=== PATIENT | female | born 1995 | race Caucasian/White ===

== ENCOUNTER → 2020-05-22 13:12 | Outpatient (BNVA) | payer OTHER, SELFPAY | PROVIDERS: Family Provider Family Medicine; PCP Family Medicine; Visit Provider Nurse Practitioner Family | DX: Z20.828 Contact with and (suspected) exposure to other viral communicable diseases (principal); J06.9 Acute upper respiratory infection, unspecified | CPT/HCPCS: 87635 ==

== ENCOUNTER → 2022-01-29 15:46 | Outpatient (BNVA) | payer MEDICAID, SELFPAY | PROVIDERS: Family Provider Family Medicine; PCP Family Medicine; Visit Provider Family Medicine | DX: Z34.80 Encounter for supervision of other normal pregnancy, unspecified trimester (principal) | CPT/HCPCS: 80307; 81000; 81025; 84443; 85025; 86592; 86762; 87086; 87491; 87591; 88175 ==

== ENCOUNTER → 2022-03-06 11:33 | Outpatient (BNVA) | payer MEDICAID, OTHER, SELFPAY | PROVIDERS: Family Provider Family Medicine; PCP Family Medicine; Visit Provider Family Medicine | DX: Z34.80 Encounter for supervision of other normal pregnancy, unspecified trimester (principal); Z11.59 Encounter for screening for other viral diseases | CPT/HCPCS: 86803; 86850; 86900; 87340; 87806 ==

== ENCOUNTER 2022-03-12 06:46 | Outpatient (CLI) | payer MEDICAID, SELFPAY ==
--- NOTE | 2022-03-12 07:15 | US_ITS ---
WS: [id number] LIMITED OBSTETRICAL ULTRASOUND HISTORY: Dates. COMPARISON: None available. Presentation: Breech. Cervix: Closed, 3.5 cm in length. Placenta: Placenta is posterior and extends to the cervical os. Low-lying placenta partially covers t he internal os. Grade: 0 HEART: FHR of 133 BPM. measurements: BPD = 3.3 cm = 16w2d HC = 12.5 cm = 16w2d AC = 9.9 cm = 15w6d FL = 2.0 cm = 16w0d EFW: 142 g AGA by ultrasound: 16w1d RYLEE by ultrasound: 08/26/2022 US/US OB <= 14 weeks fetus [id number] IMPRESSION: 1. Single intrauterine gestation of 16 weeks 1 day with an EDC of 08/26/2022. 2. Normal cardiac activity. 3. Low-lying placenta.
== END 2022-03-12 06:47 | disposition home or self-care (01) ==
LOC: RAD 06:46
PROVIDERS: Family Provider Family Medicine; PCP Family Medicine; Visit Provider Family Medicine
DX: Z34.92 Encounter for supervision of normal pregnancy, unspecified, second trimester (principal); O44.42 Low lying placenta NOS or without hemorrhage, second trimester; Z3A.14 14 weeks gestation of pregnancy
CPT/HCPCS: 76801

== ENCOUNTER → 2022-03-28 11:16 | Outpatient (BNVA) | payer OTHER, MEDICAID, SELFPAY | PROVIDERS: Family Provider Family Medicine; PCP Family Medicine; Visit Provider Family Medicine | DX: Z34.82 Encounter for supervision of other normal pregnancy, second trimester (principal); Z3A.18 18 weeks gestation of pregnancy | CPT/HCPCS: 76805 ==

== ENCOUNTER → 2022-05-27 13:12 | Outpatient (BNVA) | payer MEDICAID, SELFPAY | PROVIDERS: Family Provider Family Medicine; PCP Family Medicine; Visit Provider Family Medicine | DX: O44.42 Low lying placenta NOS or without hemorrhage, second trimester (principal); Z3A.00 Weeks of gestation of pregnancy not specified | CPT/HCPCS: 76815 ==

== ENCOUNTER → 2022-06-03 12:12 | Outpatient (BNVA) | payer MEDICAID, SELFPAY | PROVIDERS: Family Provider Family Medicine; PCP Family Medicine; Visit Provider Family Medicine | DX: O99.810 Abnormal glucose complicating pregnancy (principal); O99.891 Other specified diseases and conditions complicating pregnancy; R30.0 Dysuria; Z3A.00 Weeks of gestation of pregnancy not specified | CPT/HCPCS: 82950; 87086 ==

== ENCOUNTER → 2022-06-10 08:07 | Outpatient (BNVA) | payer MEDICAID, SELFPAY | PROVIDERS: Family Provider Family Medicine; PCP Family Medicine; Visit Provider Family Medicine | DX: O99.810 Abnormal glucose complicating pregnancy (principal); Z3A.00 Weeks of gestation of pregnancy not specified | CPT/HCPCS: 82951; 82952 ==

== ENCOUNTER → 2022-07-10 13:13 | Outpatient (BNVA) | payer MEDICAID, SELFPAY | PROVIDERS: Family Provider Family Medicine; PCP Family Medicine; Visit Provider Family Medicine | DX: Z51.81 Encounter for therapeutic drug level monitoring (principal) | CPT/HCPCS: 85025 ==

== ENCOUNTER 2022-07-29 08:19 | Outpatient (CLI) | payer MEDICAID, SELFPAY ==
--- NOTE | 2022-07-29 08:30 | US_ITS ---
WS: [id number] ULTRASOUND OB FOCUSED HISTORY: Placental location - low lying placenta COMPARISON: 05/27/2022 and 03/28/2021 Posterior and fundal placenta. Placenta is grade 2. Placenta is well above the cervical os. Placenta is no longer low-lying and no previa. heart rate at 133 BPM. Normal amniotic fluid. LEONIDES 13.0 cm. US/US OB limited [id number] IMPRESSION: No placenta previa or low-lying placenta.
== END 2022-07-29 08:20 | disposition home or self-care (01) ==
LOC: RAD 08:20
PROVIDERS: PCP Family Medicine; Visit Provider Family Medicine
DX: O44.42 Low lying placenta NOS or without hemorrhage, second trimester (principal); Z3A.00 Weeks of gestation of pregnancy not specified
CPT/HCPCS: 76815

== ENCOUNTER → 2022-08-09 13:16 | Outpatient (BNVA) | payer MEDICAID, SELFPAY | PROVIDERS: PCP Family Medicine; Visit Provider Family Medicine | DX: Z34.90 Encounter for supervision of normal pregnancy, unspecified, unspecified trimester (principal) | CPT/HCPCS: 87081 ==

== ENCOUNTER 2022-09-03 15:59 | Inpatient (IN) | payer OTHER, MEDICAID, SELFPAY ==
[2022-09-03] VITALS (20 sets, daily range): BP systolic 106–139; BP diastolic 58–91; PULSE 71–98; RESP 15–16; BMI 28.5
[2022-09-03] MEDS: ampicillin 2,000 MG in sodium chloride 0.9% (plus) 50 ML 100 MG IV (16:30)
[2022-09-03] MEDS: dextrose 5%-lactated ringers 1,000 ML 125 ML IV (16:30)
--- NOTE | 2022-09-03 17:42 | PM.HP ---
Providers/Chief Complaint Admitting Physician: Miguel Amaro MD Primary Care Provider: Gareth Vazquez DO Chief Complaint: contractions History of Present Illness Rona Wills is a 27 year old @ 40.0 weeks by LMP c/w 16 wk US. is c/b h/o urinary retention after prior delivery, elevated 1-hr GTT with normal 3-hr GTT, GBS positive. The patient presented to labor and delivery triage on the afternoon of 09/03/2022 due to contractions that started to get more regular at approximately 10:30 AM on 09/03/2022. The contractions became stronger and closer together. She denies any leakage of fluid or vaginal bleeding. In triage she was noted to be 1 cm dilated upon presentation and after 2 hours she changed to 2 cm dilation. Review of Systems Narrative: The patient denies chest pains, shortness of breath, nausea, vomiting, diarrhea, constipation, vaginal bleeding, fever. Medications/Allergies Home Medications Medication Instructions Recorded Confirmed Last Taken Type prenat.vits,daniel,izq-rbbe-zyzux 1 tab PO QDAY 07/30/19 09/03/22 09/03/22 History doxylamine succinate 25 mg tablet 25 mg PO .COMPLEX PRN nausea and 01/29/22 09/02/22 Unknown Rx vomiting #60 tabs pyridoxine (vitamin B6) 100 mg 100 mg PO BID PRN Nausea #60 tabs 01/29/22 09/02/22 Unknown Rx tablet Allergies Allergy/AdvReac Type Severity Reaction Status Date / Time No Known Allergies Allergy Verified 05/22/20 10:49 PFSH Acute PFSH: Medical History Granulation tissue Surgical History No history of previous surgery Family History Grandmother Breast cancer Paternal Grandfather Heart disease maternal Unknown No problems noted. Denies family history of Ovarian cancer Uterine cancer Social History Smoking and tobacco status: never smoked Alcohol intake: never Female Reproductive History: : 2 Vitals/I&O/Wt Last Vital Signs Pulse 83 09/03/22 17:01 BP 123/78 09/03/22 17:01 Weight last 48 hrs Weight 166 lb Physical Exam Narrative: General: Alert and oriented x3 Eyes: Pupils equal round and reactive to light and accommodation Mouth: Mucous membranes moist, pharynx non-erythematous Cardiac: Regular rate and rhythm without murmurs Lungs: Clear to auscultation bilaterally without wheezes, crackles or rhonchi Abdomen: Soft, non-tender, fundus consistent with gestational age Extremities: Trace edema in the bilateral lower extremities Data 09/03/22 16:08 A&P Assessment and plan (1) Supervision of normal intrauterine in multigravida: The patient presents in spontaneous labor. She is tonja well on her own every 3 to 5 minutes. If she stops making cervical change, we will add IV Pitocin for augmentation of labor. The patient may have a laboring epidural when desired. The patient is GBS positive. We will treat with ampicillin. All questions were answered. The patient is in agreement with current plan of care. Attestations Medical Necessity Statement*: The patient will be here for greater than 2 midnights due to routine intrapartum and management of labor and delivery. Coding Level of Care Code Acute Code for Chg Fwd Diagnoses Supervision of normal intrauterine in multigravida Z34.80
[2022-09-03] MEDS: oxytocin 30 UNIT/500 ML BAG IV (18:38)
[2022-09-03] MEDS: butorphanol 2 mg/mL SDV 1 mL 1 MG IVP ×2 (18:38→20:38)
[2022-09-03] MEDS: ampicillin 1,000 MG in sodium chloride 0.9% (plus) 50 ML 100 MG IV (20:06)
[2022-09-03] MEDS: lactated ringers 1,000 ML 999 ML IV (20:39)
[2022-09-03 20:54] LABS: Basophils % 0.2 %; Eosinophils % 0.2 %; Hematocrit 39.2 % (37.0-47.0); Lymphocytes # 2.3 10^3/uL (0.8-4.8); Lymphocytes % 21.6 %; Mean Corpuscular HGB Conc 33.2 g/dL (30.0-36.0); Mean Corpuscular Volume 93.3 fl (81-99); Mean Platelet Volume 11.3 fL (7.4-10.4); Monocytes # 0.6 10^3/uL (0.2-0.9); Monocytes % 5.4 %; Neutrophils # 7.65 10^3/uL (1.8-7.7); Neutrophils % 72.2 %; Nucleated Red Blood Cells % 0 %; Platelet Count 293 10^3/cmm (130-400); Red Cell Distribution Width 12.6 % (12.1-15.1); White Blood Count 10.6 10^3/uL (4.0-10.0)
[2022-09-03] MEDS: lidocaine 2% INJ 20 mL INJECTION (22:07)
--- NOTE | 2022-09-03 22:48 | P.PCNOB_ITS ---
Delivery Note: Date of delivery: September 03, 2022 Pre-delivery diagnoses: 1. Intrauterine at 40.1 weeks gestation 2. GBS positive 3. History of urinary retention after prior delivery 4. Elevated 1 hour GTT with normal 3-hour GTT Post-delivery diagnoses: 1. Intrauterine status post spontaneous vaginal delivery at 40.1 weeks gestation 2. GBS positive 3. History of urinary retention after prior delivery 4. Elevated 1 hour GTT with normal 3-hour GTT 5. Delivery of healthy male weighing 8 pounds 11 ounces with Apgars of 8 and 9 Procedure: Spontaneous vaginal delivery Delivering Physician: Miguel Amaro MD Estimated blood loss (mL): 250 Findings: 1. Healthy infant male weighing 8 pounds 11 ounces with Apgars of 8 and 9 2. Intact placenta with central umbilical cord insertion site Pre-Delivery Course: Rona Wills is a 27 year old @ 40.1 weeks by LMP c/w 16 wk US. is c/b h/o urinary retention after prior delivery, elevated 1-hr GTT with normal 3-hr GTT, GBS positive. The patient presented to labor and delivery triage on the afternoon of 09/03/2022 due to contractions that started to get more regular at approximately 10:30 AM on 09/03/2022.? The contractions became stronger and closer together.? She denied any leakage of fluid or vaginal bleeding.? In triage she was noted to be 1 cm dilated upon presentation and after 2 hours she changed to 2 cm dilation. The patient was started on ampicillin for GBS prophylaxis. The patient continued to have regular contractions, but then they began to space out to every 5 to 7 minutes. She continued to be 2 cm dilated, so IV Pitocin was added to augment labor. A bolus was started to give a laboring epidural. The patient made rapid change from 2 cm dilation and was complete by 2132 on 09/03/2022. She was not able to get the epidural prior to this. The patient had spontaneous rupture of membranes noted at 2132. Delivery: The patient began pushing at 2152 on 09/03/2022. The patient pushed well and the infant delivered in the OA position at 2155 on 09/03/2022. The left shoulder was the anterior shoulder and it delivered with ease. The rest of the delivered without complication. The infant's mouth and nose were bulb suctioned by myself and the was placed on the mother's chest where the nurses were waiting to care for him. The cord was clamped by myself after approximately 1 minute and cut by the infant's father. Cord blood was obtained. The cord was then drained of blood and traction was placed on umbilical cord and uterine massage was carried out. The placenta delivered without complication at 2201 on 09/03/2022. The placenta was noted to be intact with a central umbilical cord insertion site. It had meconium staining on the surface. IV Pitocin was bolused and the uterus was massaged. The patient had moderate bleeding. The cervix was inspected and no lacerations were noted. The vaginal wall was inspected and the patient had a second-degree perineal laceration as well as a second-degree right labial wall laceration. 2% lidocaine was placed locally for anesthesia. 3-0 Vicryl was used in a running fashion to repair the lacerations. The patient tolerated this well. The patient's bleeding is currently improving. She did have a few blood clots and these are starting to clear up. Currently both the mother and infant are doing well. History History History 2 Term 2 0 Miscarriages/Ectopic 0 Living Children 2 Past Pregnancies Del. Date GA/Weeks Outcome Route Wt Inf Gender Labor Lgth Comp. Anesth esia Location 06/11/19 39 live - full term Vaginal 8 lb Female 2-3 days Oth [facility] 09/03/22 40 live - full term Vaginal 8 lb 11 oz Male 12 Precipitous Delivery [facility] Delivery Date: 06/11/19 Last Updated by: Miguel Amaro MD Bladder stayed asleep for 2 days after delivery. Had to have a catheter. Baby had jaundice. She had scar tissue that grew over her tear that caused pain with urination. Delivery by Dr. Barahona. Care by Dr Buckley for care. Delivery Date: 09/03/22 Last Updated by: Miguel Amaro MD Rapid change from 2 cm to complete and less than an hour. A&P Assessment and plan (1) Spontaneous vaginal delivery: Coding Level of Care Code Acute Code for Chg Fwd Diagnoses Spontaneous vaginal delivery O80
[2022-09-03] MEDS: benzocaine-menthol 78 gm Canister 1 SPRAY TOPICAL (23:59)
[2022-09-03] MEDS: lanolin oint 7 gm 1 APPLIC TOPICAL (23:59)
[2022-09-03] MEDS: acetaminophen 325 mg Tablet 650 MG PO (23:59)
[2022-09-04] VITALS (9 sets, daily range): BP systolic 111–124; BP diastolic 66–82; PULSE 61–96; RESP 16–18; TEMP 36.7–36.8; O2SAT 98
[2022-09-04] MEDS: acetaminophen 325 mg Tablet 650 MG PO (07:51)
--- NOTE | 2022-09-04 08:08 | PM.PN ---
Subjective Subjective: The patient is doing well at this time. She is ambulating, voiding, passing gas and tolerating food by mouth. Her pain is currently well controlled. Her bleeding is decreasing well. She has no concerns. Vitals/I&O/Wt Last Vital Signs Temp 98.0 F 09/04/22 04:15 Pulse 78 09/04/22 04:15 Resp 16 09/04/22 04:15 BP 111/72 09/04/22 04:15 O2 Del Method 09/03/22 16:15 09/03/22 09/04/22 09/04/22 22:59 06:59 14:59 Intake Total 2023.90 / 2023. 93.85 / 2118.75 Output Total 600 / 600 Balance 2023. / 2023. -506.15 / 1518.75 Weight last 48 hrs Weight 166 lb Physical Exam Narrative: General: Alert and oriented x3 Cardiac: Regular rate and rhythm without murmurs Lungs: Clear to auscultation bilaterally without wheezes, crackles or rhonchi Abdomen: Soft, mild tenderness over uterus. The uterus is firm and 2 cm below the umbilicus. Extremities: Trace edema in the bilateral lower extremities Data 09/03/22 16:08 A&P Assessment and plan (1) Spontaneous vaginal delivery: The patient is doing well at this time. She is showing no signs of complications. She has been able to void. Her bleeding is decreasing well. We will check labs at 12 hours and follow. We will plan for discharge home tomorrow as long as everything continues to go well. Attestations Medical Necessity Statement*: The patient will be here for greater than 2 midnights due to routine intrapartum and management of labor and delivery. Coding Level of Care Code Acute Code for Chg Fwd Diagnoses Spontaneous vaginal delivery O80
[2022-09-04] MEDS: prenatal vitamin Capsule 1 CAP PO (10:36)
[2022-09-04] MEDS: ibuprofen 800 mg tablet PO ×3 (10:36→21:29)
[2022-09-04] MEDS: docusate sodium 100 mg Capsule PO ×2 (10:36→21:31)
[2022-09-04 13:35] LABS: Hemoglobin 10.6 g/dL (11.5-15.3); Mean Corpuscular HGB Conc 33.1 g/dL (30.0-36.0); Mean Corpuscular Hemoglobin 31.1 pg (28.0-34.0); Mean Corpuscular Volume 93.8 fl (81-99); Mean Platelet Volume 10.7 fL (7.4-10.4); Platelet Count 259 10^3/cmm (130-400); Red Blood Count 3.41 10^6/uL (4.1-5.3); Red Cell Distribution Width 12.6 % (12.1-15.1); White Blood Count 14.9 10^3/uL (4.0-10.0)
[2022-09-05 04:20] VITALS: BP 114/67; PULSE 62; RESP 18; TEMP 36.7; O2SAT 99
--- NOTE | 2022-09-05 08:36 | PM.DCS ---
Discharge Providers Date of Admission: 09/03/22 15:59 Date of Discharge: September 05, 2022 Attending Provider at Admission: Miguel Amaro MD Attending Provider at Discharge: Miguel Amaro MD Primary Care Provider: Gareth Vazquez DO Diagnoses at Discharge Discharge Diagnosis (1) Spontaneous vaginal delivery: Status: Resolved Other Information Additional DC diagnoses/information: 1.? Intrauterine status post spontaneous vaginal delivery at 40.1 weeks gestation 2.? GBS positive 3.? History of urinary retention after prior delivery 4.? Elevated 1 hour GTT with normal 3-hour GTT 5.? Delivery of healthy infant male weighing 8 pounds 11 ounces with Apgars of 8 and 9? Reason for Visit Reason for Visit: contractions Brief History: Rona Wills is a 27 year old @ 40.1 weeks by LMP c/w 16 wk US. is c/b h/o urinary retention after prior delivery, elevated 1-hr GTT with normal 3-hr GTT, GBS positive. The patient presented to labor and delivery triage on the afternoon of 09/03/2022 due to contractions that started to get more regular at approximately 10:30 AM on 09/03/2022.? The contractions became stronger and closer together.? She denied any leakage of fluid or vaginal bleeding.? In triage she was noted to be 1 cm dilated upon presentation and after 2 hours she changed to 2 cm dilation. Procedure: Sponta neous vaginal deli very? Delivering P hysician: Miguel le MD? Estimat ed blood loss (mL) : 250? Findings: 1.? Healthy male weighing 8 p ounds 11 ounces wi th Apgars of 8 and 9 2.? Intact [facility] with central umbilical cord in sertion site Pre-Delivery Cours e:?? ? Delivery:?? Hospital Course Hospital Course The patient was started on ampicillin for GBS prophylaxis.? The patient continued to have regular contractions, but then they began to space out to every 5 to 7 minutes.? She continued to be 2 cm dilated, so IV Pitocin was added to augment labor.? A bolus was started to give a laboring epidural.? The patient made rapid change from 2 cm dilation and was complete by 2132 on 09/03/2022.? She was not able to get the epidural prior to this.? The patient had spontaneous rupture of membranes noted at 2132. The patient began pushing at 2152 on 09/03/2022.? The patient pushed well and the infant delivered in the OA position at 2155 on 09/03/2022.? The left shoulder was the anterior shoulder and it delivered with ease.? The rest of the delivered without complication.? The 's mouth and nose were bulb suctioned by myself and the infant was placed on the mother's chest where the nurses were waiting to care for him.? The cord was clamped by myself after approximately 1 minute and cut by the infant's father.? Cord blood was obtained.? The cord was then drained of blood and traction was placed on umbilical cord and uterine massage was carried out.? The placenta delivered without complication at 2200 on 09/03/2022.? The placenta was noted to be intact with a central umbilical cord insertion site.? It had meconium staining on the surface.? IV Pitocin was bolused and the uterus was massaged.? The patient had moderate bleeding.? The cervix was inspected and no lacerations were noted.? The vaginal wall was inspected and the patient had a second-degree perineal laceration as well as a second-degree right labial wall laceration.? 2% lidocaine was placed locally for anesthesia.? 3-0 Vicryl was used in a running fashion to repair the lacerations.? The patient tolerated this well.? The patient did well and has been ambulating, voiding, passing gas and tolerating food by mouth. Her pain is well controlled. Her bleeding is decreasing well. She is currently breast-feeding. Routine discharge instructions were discussed. All questions were answered. The patient is to follow-up with me at 6 weeks or sooner if needed. Physical Exam Narrative: General: Alert and oriented x3 Cardiac: Regular rate and rhythm without murmurs Lungs: Clear to auscultation bilaterally without wheezes, crackles or rhonchi Abdomen: Soft, mild tenderness over uterus. The uterus is firm and 2 cm below the umbilicus. Extremities: Trace edema in the bilateral lower extremities Discharge Data Studies Completed and Pending Laboratory Results WBC 14.9 10^3/uL (4.0-10.0) H 09/04/22 13:21 RBC 3.41 10^6/uL (4.1-5.3) L 09/04/22 13:21 Hgb 10.6 g/dL (11.5-15.3) L 09/04/22 13:21 Hct 32.0 % (37.0-47.0) L 09/04/22 13:21 MCV 93.8 fl (81-99) 09/04/22 13:21 MCH 31.1 pg (28.0-34.0) 09/04/22 13:21 MCHC 33.1 g/dL (30.0-36.0) 09/04/22 13:21 RDW 12.6 % (12.1-15.1) 09/04/22 13:21 Plt Count 259 10^3/cmm (130-400) 09/04/22 13:21 MPV 10.7 fL (7.4-10.4) H 09/04/22 13:21 Neut % (Auto) 72.2 % 09/03/22 16:08 Lymph % (Auto) 21.6 % 09/03/22 16:08 Gove % (Auto) 5.4 % 09/03/22 16:08 Eos % (Auto) 0.2 % 09/03/22 16:08 Baso % (Auto) 0.2 % 09/03/22 16:08 Neut # (Auto) 7.65 10^3/uL (1.8-7.7) 09/03/22 16:08 Lymph # (Auto) 2.3 10^3/uL (0.8-4.8) 09/03/22 16:08 Gove # (Auto) 0.6 10^3/uL (0.2-0.9) 09/03/22 16:08 Eos # (Auto) 0.0 10^3/uL (0.0-0.8) 09/03/22 16:08 Baso # (Auto) 0.0 10^3/uL (0.0-0.1) 09/03/22 16:08 Nucleated RBC % (auto) 0 % 09/03/22 16:08 Nucleated RBCs # 0.0 /100WBC 09/03/22 16:08 Vitals Last Vital Signs Temp 98.1 F 09/05/22 04:20 Pulse 62 09/05/22 04:20 Resp 18 03/02/23 04:20 BP 114/67 09/05/22 04:20 Pulse Ox 99 09/05/22 04:20 O2 Del Method 09/05/22 04:20 Discharge Plan Discharge Patient Disposition: Home Condition: Good Prescriptions: New ibuprofen 800 mg Tablet 800 mg PO TID Qty: 60 0RF docusate sodium 100 mg Capsule 100 mg PO BID PRN (Reason: constipation) Qty: 30 0RF ferrous sulfate 325 mg (65 mg iron) tablet 325 mg PO BID 15 Days Qty: 30 0RF Continued prenat.vits,daniel,[id number] Tablet 1 tab PO QDAY Tums 300 mg (750 mg) Tablet,Chewable 300 mg PO TID cimetidine 200 mg Tablet 200 mg PO TID Rx Instructions: administer with meals Discharge Orders: Discharge Order (Routine); Ordered 09/05/22 Ordered By: Miguel Amaro Referrals: Miguel Amaro MD [Physician] - 10/15/22 11:30 am Discharge Diet: Regular Discharge Activity: Increase activity as tolerated Patient Instructions: Depression (GEN), Perineal Care (GEN), Bleeding (GEN), COVID-19 and (GEN), Hemorrhage (GEN), OB Discharge Report, OB Food/Drug Interaction Guide, OB Care at Home, Opioid Safety, OB Your Care - [facility], Abnormal Bleeding Activity Restrictions/Additional Instructions: Nothing per vagina for 6 weeks. If you have any concern for complications with your sutures, please contact Dr. Amaro's office for evaluation. If you have any concern that you are not able to urinate, please seek immediate medical attention. Discharge Attestations Time Spent in Discharge Care*: greater than 30 min Quality Metrics Clinical Quality Measures [ No reported AMI, CVA or VTE this stay] Coding Level of Care Code Acute Code for Chg Fwd Diagnoses Spontaneous vaginal delivery O80
[2022-09-05] MEDS: docusate sodium 100 mg Capsule PO (09:53)
[2022-09-05] MEDS: prenatal vitamin Capsule 1 CAP PO (09:53)
[2022-09-05] MEDS: ibuprofen 800 mg tablet PO (09:53)
[2022-09-05 10:05] VITALS: BP 117/77; PULSE 91; RESP 16; RESP 17; TEMP 36.7
== END 2022-09-05 10:20 | disposition home or self-care (01) | DRG 807 ==
LOC: OPOB 16:09 → OBGYN 16:11
PROVIDERS: Admitting Provider Family Medicine; PCP Family Medicine; Visit Provider Family Medicine
DX: O48.0 Post-term pregnancy (principal); Z37.0 Single live birth; Z3A.40 40 weeks gestation of pregnancy; O99.824 Streptococcus B carrier state complicating childbirth; O77.0 Labor and delivery complicated by meconium in amniotic fluid; O70.1 Second degree perineal laceration during delivery
CPT/HCPCS: 36415; 59025; 59409; 85025; 85027; 96374; 96376; 99211; J0290; J0595; J2590; J7120; J7121

== ENCOUNTER 2022-11-19 20:21 | Emergency (ER) | payer OTHER, MEDICAID, SELFPAY ==
[2022-11-19 20:55] VITALS: BP 120/83; PULSE 81; RESP 14; TEMP 36.6; O2SAT 99
--- NOTE | 2022-11-19 21:07 | ED_ITS ---
HPI - Syncope General: Chief Complaint: Syncope Stated Complaint: Vomiting, migraine, pt has passed out Time Seen by Provider: 11/19/22 21:06 History of Present Illness: Presents to the ER tonight with syncope x2. Patient stated the first time she was getting ready to specialty foods cook and she felt like she was going to pass out so she lowered herself to the ground. She woke up on the ground with a severe headache. Patient has no history of this. Patient is nauseous and vomiting at this time. Patient is diaphoretic and pale. Patient really recently gave on the and is currently breast-feeding. In our ER patient had a syncopal episode again. MD complaint: loss of consciousness, felt faint and collapsed Onset (ago): day(s) (2 episodes today) Witnessed: Yes - by Bystander (by ) Context: at rest Injuries sustained associated with event: none Associated symptoms: Reports headache(s) and nausea; Deny abdominal pain, chest pain or fever(s) Treatments prior to arrival: none Review of Systems General: Reports: 10 or more systems reviewed and unremarkable except in HPI and below Const: Denies: fever(s) or chills Eyes: Denies: change in vision or photophobia ENMT: Denies: throat pain or odynophagia Card: Denies: chest pain, palpitations or irregular heart rhythm Resp: Denies: dyspnea, productive cough, non-productive cough or wheezing GI: Reports: nausea and vomiting; Denies: abdominal pain : Denies: flank pain, difficulty voiding or dysuria Musc: Denies: neck pain, back pain or extremity pain Skin/Breast: Denies: rash or pruritus Neuro: Reports: headache(s); Denies: numbness in extremities or weakness in extremities PFSH ED 2 PFSH: Medical History Granulation tissue Surgical History No history of previous surgery Family History Grandmother Breast cancer Paternal Grandfather Heart disease maternal Unknown No problems noted. Denies family history of Ovarian cancer Uterine cancer Social History Smoking and tobacco status: never smoked Alcohol intake: never Substance/Drug Use: never Physical Exam Const: COMMON NORMALS: no acute distress, average body habitus, patient oriented x3, no limitations, alert and well nourished HENMT: COMMON NORMALS: normocephalic, atraumatic, hearing grossly normal bilaterally, external ears normal, Normal external nose present and moist oral mucous membranes HEAD & SCALP: normocephalic and atraumatic NOSE: Normal external nose present EXTERNAL EAR: Yes external ears normal Eye: COMMON NORMALS: Equal, round and reactive pupils present, EOMs intact bilaterally, conjunctivae normal and no scleral icterus CONJUNCTIVA: Yes conjunctivae normal PUPIL: Yes Equal, round and reactive pupils present Neck/C-Spine: COMMON NORMALS: no JVD Chest: COMMONS NORMALS: normal inspection of the chest and normal palpation of entire chest wall Resp: COMMON NORMALS: normal respiratory effort, No retractions, No use of accessory muscles and clear to auscultation bilaterally AUSCULTATION: clear to auscultation bilaterally Cardio: COMMON NORMALS: no JVD, regular rate, regular rhythm, S1 normal heart sound present, S2 normal heart sound present, No gallops present (Cardio), No clicks present (Cardio) and No murmurs present (Cardio) RATE: regular rate RHYTHM: regular rhythm HEART SOUNDS: S1 normal heart sound present and S2 normal heart sound present GI: COMMON NORMALS: Normal to inspection, nondistended, normoactive bowel sounds present, Soft to palpation, non-tender, No hepatosplenomegaly present and no masses PALPATION: Yes Soft to palpation and Yes No hepatosplenomegaly present : COMMON NORMALS: Yes no CVA tenderness BLADDER/KIDNEY EXAM: Yes no CVA tenderness Back/Pelvis: COMMON NORMALS: no CVA tenderness Neuro: COMMON NORMALS: patient oriented x3 SENSORIUM/ORIENTATION: Yes alert Course 2 Vital Signs: Vital signs: Vital Signs Temperature 97.9 F 11/19/22 20:55 Pulse Rate 80 11/19/22 22:35 Respiratory Rate 18 11/19/22 22:35 Blood Pressure 115/82 11/19/22 22:35 Pulse Oximetry 99 11/19/22 22:35 Oxygen Delivery Me thod Room Air 11/19/22 20:55 MDM - Syncope Medical Decision Making Patient presents to the ER with syncope x2 and an headache. Patient does not have syncope normally however she have headaches. Physical exam was performed patient was having nausea and vomiting and was given antiemetics and fluids. Lab work and CT was obtained which showed CT of cervical spine and head was both negative, lab work was benign other than white count barely elevated 11.6. Slightly elevated AlT of approximately 43, alk phos of 112, urine was slightly concentrated showed trace leukocyte Estrace and 2+ blood however this was not a very clean sample having 5-10 epithelial cells. Patient was feeling much better after 2 L of fluid nausea medicine and pain medicine. Patient elected to go home. Patient will be discharged home to follow-up with her primary care practitioner for further evaluation and treatment. Differential Diagnosis Likely syncope due to orthostatic hypotension and dehydration; Unlikely vasovagal syncope, complete atrioventricular block, subarachnoid hemorrhage or pulmonary embolism Medical Records I reviewed the patient's medical records. Lab Data I reviewed the patient's lab results. 11/19/22 21:15 11/19/22 21:15 Radiology Impressions Cervical Spine CT 11/19/22 22:17 IMPRESSION: No acute findings. Head CT 11/19/22 22:17 IMPRESSION: No acute intracranial abnormality. Laboratory Results WBC 11.6 10^3/uL (4.0-10.0) H 11/19/22 21:15 RBC 4.14 10^6/uL (4.1-5.3) 11/19/22 21:15 Hgb 12.4 g/dL (11.5-15.3) 11/19/22 21:15 Hct 37.0 % (37.0-47.0) 11/19/22 21:15 MCV 89.4 fl (81-99) 11/19/22 21:15 MCH 30.0 pg (28.0-34.0) 11/19/22 21:15 MCHC 33.5 g/dL (30.0-36.0) 11/19/22 21:15 RDW 12.4 % (12.1-15.1) 11/19/22 21:15 Plt Count 242 10^3/cmm (130-400) 11/19/22 21:15 MPV 9.4 fL (7.4-10.4) 11/19/22 21:15 Neut % (Auto) 78.7 % 11/19/22 21:15 Lymph % (Auto) 15.6 % 11/19/22 21:15 [place] % (Auto) 4.4 % 11/19/22 21:15 Eos % (Auto) 0.3 % 11/19/22 21:15 Baso % (Auto) 0.4 % 11/19/22 21:15 Neut # (Auto) 9.14 10^3/uL (1.8-7.7) H 11/19/22 21:15 Lymph # (Auto) 1.8 10^3/uL (0.8-4.8) 11/19/22 21:15 [place] # (Auto) 0.5 10^3/uL (0.2-0.9) 11/19/22 21:15 Eos # (Auto) 0.0 10^3/uL (0.0-0.8) 11/19/22 21:15 Baso # (Auto) 0.1 10^3/uL (0.0-0.1) 11/19/22 21:15 Nucleated RBC % (auto) 0 % 11/19/22 21:15 Nucleated RBCs # 0.0 /100WBC 11/19/22 21:15 Sodium 139 mmol/L (136-145) 11/19/22 21:15 Potassium 3.7 mmol/L (3.5-5.1) 11/19/22 21:15 Chloride 102 mmol/L (98-107) 11/19/22 21:15 Carbon Dioxide 24 mmol/L (22-29) 11/19/22 21:15 Anion Gap 16.7 (5-19) 11/19/22 21:15 BUN 17 mg/dL (6-20) 11/19/22 21:15 Creatinine 0.6 mg/dL (0.5-0.9) 11/19/22 21:15 GFR Calculation 119.9 mL/min (90-130) 11/19/22 21:15 Glucose 110 mg/dL (65-115) 11/19/22 21:15 Calculated Osmolality 290 mOsm/kg (285-295) 11/19/22 21:15 Calcium 8.9 mg/dL (8.5-10.5) 11/19/22 21:15 Magnesium 1.7 mg/dL (1.7-2.3) 11/19/22 21:15 Total Bilirubin 0.4 mg/dL (0.15-1.2) 11/19/22 21:15 AST 18 U/L (0-32) 11/19/22 21:15 ALT 43 U/L (0-33) H 11/19/22 21:15 Alkaline Phosphatase 112 U/L (35-105) H 11/19/22 21:15 Total Protein 7.2 g/dL (6.6-8.7) 11/19/22 21:15 Albumin 4.7 g/dL (3.5-5.2) 11/19/22 21:15 Globulin 2.5 g/dL (1.3-4.6) 11/19/22 21:15 Lipase 45 U/L (13-60) 11/19/22 21:15 HCG, Qual Negative (Negative) 11/19/22 21:15 Urine Color Yellow (Yellow) 11/19/22 22:22 Urine Appearance Sl hazy (CLEAR) A 11/19/22 22:22 Urine pH 6 (5-7) 11/19/22 22:22 Ur Specific [place] 1.020 (1.005-1.030) 11/19/22 22:22 Urine Protein Trace (Negative) 11/19/22 22:22 Urine Glucose (UA) Norm (Normal) 11/19/22 22:22 Urine Ketones Negative (Negative) 11/19/22 22:22 Urine Blood 2+ (Negative) H 11/19/22 22:22 Urine Nitrate Negative (Negative) 11/19/22 22:22 Urine Bilirubin Neg (Negative) 11/19/22 22:22 Urine Urobilinogen Neg mg/dL (Negative) 11/19/22 22:22 Ur Leukocyte Esterase Trace (Negative) H 11/19/22 22:22 Urine RBC 5-10 /hpf (0-2) H 11/19/22 22:22 Urine WBC 0-4 /hpf (0-5) H 11/19/22 22:22 Ur Squamous Epith Cells 5-10 /hpf (0-5) H 11/19/22 22:22 Amorphous Sediment Not Reportable 11/19/22 22:22 Urine Bacteria 1+ /hpf (NONE) H 11/19/22 22:22 Urine Mucus 2+ /hpf 11/19/22 22:22 EKG Data EKG 1: I personally reviewed and interpreted this EKG as follows: EKG interpretation date: 11/19/22 EKG interpretation time: 22:06 Prior EKG tracings: not available for review Interpretation: EKG showed ventricular rate of 87 bpm with a normal sinus rhythm with a first- degree AV block, MO interval of 226, QRS duration of 88, QTc of 435, no ST-T wave changes Discharge Plan Discharge Patient Disposition: Home Clinical Impression: Dehydration, Syncope and collapse Headache Qualifiers: Headache type: unspecified Headache chronicity pattern: acute headache Intractability: not intractable Qualified Code(s): R51.9 - Headache, unspecified Condition: Stable Prescriptions: No Action prenat.vits,daniel,han-gtiy-gtqky Tablet 1 tab PO QDAY Tums 300 mg (750 mg) Tablet,Chewable 300 mg PO TID cimetidine 200 mg Tablet 200 mg PO TID Rx Instructions: administer with meals ibuprofen 800 mg Tablet 800 mg PO TID Qty: 60 0RF docusate sodium 100 mg Capsule 100 mg PO BID PRN (Reason: constipation) Qty: 30 0RF Discharge Orders: Discharge ED (Routine); Ordered 11/19/22 Ordered By: Star Bernardo Referrals: Gareth Vazquez DO [Primary Care Provider] - 1 week Patient Instructions: Dehydration - Adult, Syncope, Acute Headache (ED) Coding 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
[2022-11-19] MEDS: sodium chloride 0.9% 1,000 ML 999 ML IV ×2 (21:14→23:48)
[2022-11-19 21:21] LABS: Basophils # 0.1 10^3/uL (0.0-0.1); Basophils % 0.4 %; Eosinophils % 0.3 %; Hemoglobin 12.4 g/dL (11.5-15.3); Lymphocytes # 1.8 10^3/uL (0.8-4.8); Lymphocytes % 15.6 %; Mean Corpuscular HGB Conc 33.5 g/dL (30.0-36.0); Mean Corpuscular Volume 89.4 fl (81-99); Mean Platelet Volume 9.4 fL (7.4-10.4); Monocytes # 0.5 10^3/uL (0.2-0.9); Monocytes % 4.4 %; Neutrophils # 9.14 10^3/uL (1.8-7.7); Neutrophils % 78.7 %; Nucleated Red Blood Cells % 0 %; Platelet Count 242 10^3/cmm (130-400); Red Blood Count 4.14 10^6/uL (4.1-5.3); Red Cell Distribution Width 12.4 % (12.1-15.1); White Blood Count 11.6 10^3/uL (4.0-10.0)
[2022-11-19 21:28] VITALS: BP 110/79
[2022-11-19] MEDS: ondansetron 2 mg/ML SDV 2 mL 8 MG IVP (21:37)
[2022-11-19] MEDS: acetaminophen 1,000 MG/100 ML PIGGYBACK 400 MG IV (21:38)
[2022-11-19 21:44] LABS: HCG, Serum Qual Negative (Negative)
[2022-11-19 21:49] LABS: Albumin Level 4.7 g/dL (3.5-5.2); Alkaline Phosphatase 112 U/L (35-105); Anion Gap 16.7 (5-19); Aspartate Amino Transferase 18 U/L (0-32); Blood Urea Nitrogen 17 mg/dL (6-20); Calcium 8.9 mg/dL (8.5-10.5); Carbon Dioxide 24 mmol/L (22-29); Chloride 102 mmol/L (98-107); Globulin 2.5 g/dL (1.3-4.6); Glomerular Filtration Rate 119.9 mL/min (90-130); Glucose 110 mg/dL (65-115); Lipase 45 U/L (13-60); Osmolality Calculated 290 mOsm/kg (285-295); Potassium 3.7 mmol/L (3.5-5.1); Sodium 139 mmol/L (136-145); Total Bilirubin 0.4 mg/dL (0.15-1.2); Total Protein 7.2 g/dL (6.6-8.7)
--- NOTE | 2022-11-19 22:06 | ECG_ITS ---
[facility] Test Date: 2022-11-19 Pat Name: Rona Wills Department: Room: Gender: Female Lead Applier: : 1995 Requested By: Star Bernardo Order Number: [id number] Fox MD: Jovan Meadows M.D. Measurements Intervals [place] Rate: 87 P: 22 DC: 226 QRS: 6 QRSD: 88 T: 11 QT: 390 QTc: 471 Interpretive Statements SINUS RHYTHM WITH FIRST DEGREE AV BLOCK VOLTAGE CRITERIA FOR LVH [MEETS CRITERIA IN ONE OF: R(aVL), S(V1), R(V5), R(V5/V6)+S(V1)] No previous ECG available for comparison Electronically Signed On 11-20-2022 17:49:42 CDT by Jovan Meadows M.D. [email or web address]
[2022-11-19 22:10] LABS: Alanine Aminotransferase 43 U/L (0-33)
[2022-11-19 22:15] LABS: Magnesium 1.7 mg/dL (1.7-2.3)
--- NOTE | 2022-11-19 22:17 | CTR_ITS ---
PROCEDURE INFORMATION: Exam: CT Cervical Spine Without Contrast Exam date and time: 11/19/2022 10:43 PM Age: 27 years old Clinical indication: Injury or trauma; Fall; Concussion/head injury; Additional info: Syncope fall neck pain TECHNIQUE: Imaging protocol: Computed tomography of the cervical spine without contrast. Radiation optimization: All CT scans at this facility use at least one of these dose optimization techniques: automated exposure control; mA and/or kV adjustment per patient size (includes targeted exams where dose is matched to clinical indication); or iterative reconstruction. REPORTING DATA: Count of CT and Cardiac NM exams in prior 12 months: This patient has received 0 known CTs and 0 known cardiac nuclear medicine studies in the 12 months prior to the current study. COMPARISON: CT head wo con* [id number] 11/19/2022 10:40 PM RADIATION DOSE METRICS: Total DLP (mGy-cm): 133.87 FINDINGS: Bones/joints: No acute fracture. Normal alignment. C2-C3: No significant disc bulge or herniation. No severe spinal canal stenosis. No significant neural foraminal narrowing. C3-C4: No significant disc bulge or herniation. No severe spinal canal stenosis. No significant neural foraminal narrowing. C4-C5: No significant disc bulge or herniation. No severe spinal canal stenosis. No significant neural foraminal narrowing. C5-C6: No significant disc bulge or herniation. No severe spinal canal stenosis. No significant neural foraminal narrowing. C6-C7: No significant disc bulge or herniation. No severe spinal canal stenosis. No significant neural foraminal narrowing. C7-T1: No significant disc bulge or herniation. No severe spinal canal stenosis. No significant neural foraminal narrowing. Lungs: Lung apices are normal. Soft tissues: Unremarkable. CT/CT cervical spin wo con* [id number] IMPRESSION: No acute findings.
--- NOTE | 2022-11-19 22:17 | CTR_ITS ---
PROCEDURE INFORMATION: Exam: CT Head Without Contrast Exam date and time: 11/19/2022 10:40 PM Age: 27 years old Clinical indication: Syncope and collapse; Additional info: Syncope, headache TECHNIQUE: Imaging protocol: Computed tomography of the head without contrast. Radiation optimization: All CT scans at this facility use at least one of these dose optimization techniques: automated exposure control; mA and/or kV adjustment per patient size (includes targeted exams where dose is matched to clinical indication); or iterative reconstruction. REPORTING DATA: Count of CT and Cardiac NM exams in prior 12 months: This patient has received 0 known CTs and 0 known cardiac nuclear medicine studies in the 12 months prior to the current study. COMPARISON: No relevant prior studies available. RADIATION DOSE METRICS: Total DLP (mGy-cm): 973.94 FINDINGS: Brain: Normal. No hemorrhage. Unremarkable white matter. No mass effect. Cerebral ventricles: No ventriculomegaly. Paranasal sinuses: Visualized sinuses are unremarkable. No fluid levels. Mastoid air cells: Visualized mastoid air cells are well aerated. Bones/joints: Unremarkable. No acute fracture. Soft tissues: Unremarkable. CT/CT head wo con* [id number] IMPRESSION: No acute intracranial abnormality.
[2022-11-19 22:24] VITALS: BP 110/79
[2022-11-19 22:31] VITALS: RESP 16; O2SAT 100
[2022-11-19] MEDS: fentaNYL 50 mcg/mL INJ 2mL 25 MCG IVP ×2 (22:31→23:48)
[2022-11-19 22:35] VITALS: BP 115/82; PULSE 80; RESP 18; O2SAT 99
[2022-11-19 22:47] LABS: Add Urine Microscopic? YES; Bilirubin Urine Neg (Negative); Blood Urine 2+ (Negative); Glucose Urine UA Norm (Normal); Ketones Urine Negative (Negative); Leukocyte Esterase Urine Trace (Negative); Nitrate Urine Negative (Negative); Protein Urine Trace (Negative); Urine Appearance SL Hazy (CLEAR); Urine Color Yellow (Yellow); Urobilinogen Urine Neg (Negative); WBC Urine 0-4 /hpf (0-5); pH Urine 6 (5-7)
[2022-11-19 22:48] LABS: Add Urine Culture? No; Bacteria Urine 1+ /hpf; Mucus Urine 2+ /hpf
== END 2022-11-20 00:59 | disposition home or self-care (01) ==
PROVIDERS: Emergency Medicine; Emergency Provider Emergency Medicine; PCP Family Medicine
DX: O90.89 Other complications of the puerperium, not elsewhere classified (principal); R55 Syncope and collapse; O99.285 Endocrine, nutritional and metabolic diseases complicating the puerperium; E86.0 Dehydration
CPT/HCPCS: 70450; 72125; 80053; 81001; 83690; 83735; 84703; 85025; 93005; 96361; 96365; 96366; 96375; 96376; 99285; J0131; J2405; J3010; J7030

== ENCOUNTER → 2023-10-07 11:20 | Outpatient (BNVA) | payer OTHER, MEDICAID, SELFPAY | PROVIDERS: PCP Family Medicine; Visit Provider Family Medicine | DX: R42 Dizziness and giddiness (principal); E03.9 Hypothyroidism, unspecified | CPT/HCPCS: 80053; 84443; 85025 ==

== ENCOUNTER 2024-02-10 07:42 | Emergency (ER) | payer OTHER, SELFPAY ==
[2024-02-10 07:46] VITALS: BP 133/97; PULSE 77; RESP 16; TEMP 36.6; O2SAT 97
[2024-02-10] MEDS: sodium chloride 0.9% 1,000 ML 999 ML IV (08:07)
[2024-02-10] MEDS: ondansetron 2 mg/ML SDV 2 mL 4 MG IVP (08:07)
[2024-02-10 08:13] LABS: Basophils % 0.2 %; Eosinophils % 0.1 %; Hematocrit 38.4 % (36-47); Lymphocytes # 1.1 10^3/uL (0.8-4.8); Lymphocytes % 11.8 %; Mean Corpuscular HGB Conc 33.3 g/dL (30-55); Mean Corpuscular Hemoglobin 29.6 pg (27-33); Mean Corpuscular Volume 88.9 fl (85-98); Mean Platelet Volume 9.7 fL (7.4-10.4); Monocytes # 0.3 10^3/uL (0.2-0.9); Monocytes % 2.7 %; Neutrophils # 8.24 10^3/uL (1.8-7.7); Neutrophils % 84.9 %; Nucleated Red Blood Cells % 0 %; Platelet Count 277 10^3/cmm (157-399); Red Blood Count 4.32 10^6/uL (3.85-5.65)
--- NOTE | 2024-02-10 08:13 | W.ED.NAVMDI ---
HPI - Nausea/Vomiting/Diarrhea General: Chief complaint: Nausea/Vomiting/Diarrhea Stated complaint: vomiting, headache, nausea Time Seen by Provider: 02/10/24 07:48 History of Present Illness: 28-year-old female who presents to the emergency room with vomiting headache and nausea this began after she started some medication she initially took citalopram did not feel well was nauseous had a headache and then took a buspirone late last night his persistent symptoms this morning. No hematemesis or coffee-ground emesis she does not believe she is . She denies any fever sweats chills dysuria urgency or frequency. She is prescribed buspirone as needed Associated nausea: Yes Associated symtoms: Reports nausea; Denies chest pain or dysuria Review of Systems Const: Denies: fever(s) or chills Card: Denies: chest pain Resp: Denies: dyspnea GI: Reports: nausea and vomiting; Denies: abdominal pain : Denies: dysuria, urinary frequency or urinary urgency Musc: Denies: neck pain or back pain Skin/Breast: Denies: rash PFSH ED PFSH: Medical History Granulation tissue Surgical History No history of previous surgery Family History Grandmother Breast cancer Paternal Grandfather Heart disease maternal Unknown No problems noted. Denies family history of Ovarian cancer Uterine cancer Social History Smoking and tobacco/nicotine status: never used tobacco/nicotine Alcohol intake: never Substance/Drug Use: never Physical Exam Const: GENERAL APPEARANCE: cooperative ORIENTATION/CONSCIOUSNESS: Yes awake, Yes oriented to person, Yes oriented to place and Yes oriented to time HENMT: COMMON NORMALS: normocephalic, atraumatic and hearing grossly normal bilaterally HEAD & SCALP: normocephalic and atraumatic Resp: COMMON NORMALS: normal respiratory effort, No retractions, No use of accessory muscles and clear to auscultation bilaterally AUSCULTATION: clear to auscultation bilaterally Cardio: COMMON NORMALS: regular rate, regular rhythm and No murmurs present (Cardio) RATE: regular rate RHYTHM: regular rhythm GI: COMMON NORMALS: Soft to palpation and No hepatosplenomegaly present AUSCULTATION: Yes normoactive bowel sounds PALPATION: Yes Soft to palpation, No Tenderness to palpation present (GI), No Guarding due to palpation present (GI) and Yes No hepatosplenomegaly present Extremity: COMMON NORMALS: normal to inspection, capillary refill normal, no clubbing, cyanosis or edema, no calf tenderness and no pedal edema Neuro: SENSORIUM/ORIENTATION: Yes oriented to person, Yes oriented to place and Yes oriented to time Skin: COMMON NORMALS: no rashes or lesions noted GENERAL SKIN EXAM: no rashes or lesions noted Course Vital Signs: Vital signs: Vital Signs Temperature 97.8 F 02/10/24 07:46 Pulse Rate 77 02/10/24 07:46 Respiratory Rate 16 02/10/24 07:46 Blood Pressure 133/97 02/10/24 07:46 Pulse Oximetry 97 02/10/24 07:46 Oxygen Delivery Me thod Room Air 02/10/24 07:46 MDM - Nausea/Vomiting/Diarrhea Medical Decision Making Labs reviewed no significant finding. Suspect your symptoms are due to side effect of medications recommend she hold citalopram and buspirone. Typically buspirone is not a as needed medication discussed with her primary care physician. Will discharge patient home follow-up with her primary care as needed Lab Data 02/10/24 08:06 02/10/24 08:06 Laboratory Results WBC 9.70 10^3/uL (3.29-11.43) 02/10/24 08:06 RBC 4.32 10^6/uL (3.85-5.65) 02/10/24 08:06 Hgb 12.80 g/dL (11.27-16.99) 02/10/24 08:06 Hct 38.4 % (36-47) 02/10/24 08:06 MCV 88.9 fl (85-98) 02/10/24 08:06 MCH 29.6 pg (27-33) 02/10/24 08:06 MCHC 33.3 g/dL (30-55) 02/10/24 08:06 RDW 12.0 % (12.1-15.1) L 02/10/24 08:06 Plt Count 277 10^3/cmm (157-399) 02/10/24 08:06 MPV 9.7 fL (7.4-10.4) 02/10/24 08:06 Neut % (Auto) 84.9 % 02/10/24 08:06 Lymph % (Auto) 11.8 % 02/10/24 08:06 [place] % (Auto) 2.7 % 02/10/24 08:06 Eos % (Auto) 0.1 % 02/10/24 08:06 Baso % (Auto) 0.2 % 02/10/24 08:06 Neut # (Auto) 8.24 10^3/uL (1.8-7.7) H 02/10/24 08:06 Lymph # (Auto) 1.1 10^3/uL (0.8-4.8) 02/10/24 08:06 [place] # (Auto) 0.3 10^3/uL (0.2-0.9) 02/10/24 08:06 Eos # (Auto) 0.0 10^3/uL (0.0-0.8) 02/10/24 08:06 Baso # (Auto) 0.0 10^3/uL (0.0-0.1) 02/10/24 08:06 Nucleated RBC % (auto) 0 % 02/10/24 08:06 Nucleated RBCs # 0.0 /100WBC 02/10/24 08:06 Sodium 137 mmol/L (136-145) 02/10/24 08:06 Potassium 3.9 mmol/L (3.5-5.1) 02/10/24 08:06 Chloride 104 mmol/L (98-107) 02/10/24 08:06 Carbon Dioxide 21 mmol/L (22-29) L 02/10/24 08:06 Anion Gap 15.9 (5-19) 02/10/24 08:06 BUN 11 mg/dL (6-20) 02/10/24 08:06 Creatinine 0.6 mg/dL (0.5-0.9) 02/10/24 08:06 GFR Calculation 119.0 mL/min (90-130) 02/10/24 08:06 Glucose 112 mg/dL (65-115) 02/10/24 08:06 Calculated Osmolality 284 mOsm/kg (285-295) L 02/10/24 08:06 Calcium 9.3 mg/dL (8.5-10.5) 02/10/24 08:06 Total Bilirubin 0.4 mg/dL (0.15-1.2) 02/10/24 08:06 AST 12 U/L (0-32) 02/10/24 08:06 ALT 10 U/L (0-33) 02/10/24 08:06 Alkaline Phosphatase 55 U/L (35-105) 02/10/24 08:06 Total Protein 7.5 g/dL (6.6-8.7) 02/10/24 08:06 Albumin 4.7 g/dL (3.5-5.2) 02/10/24 08:06 Globulin 2.8 g/dL (1.3-4.6) 02/10/24 08:06 HCG, Qual Negative (Negative) 02/10/24 08:06 Urine Color Yellow (Yellow) 02/10/24 08:10 Urine Appearance Clear (CLEAR) 02/10/24 08:10 Urine pH 6.0 (5-7) 02/10/24 08:10 Ur Specific [place] 1.011 (1.005-1.030) 02/10/24 08:10 Urine Protein Negative (Negative) 02/10/24 08:10 Urine Glucose (UA) Negative (Normal) 02/10/24 08:10 Urine Ketones Negative (Negative) 02/10/24 08:10 Urine Blood 2+ (Negative) A 02/10/24 08:10 Urine Nitrate Negative (Negative) 02/10/24 08:10 Urine Bilirubin Negative (Negative) 02/10/24 08:10 Urine Urobilinogen 0.2 mg/dL (Negative) 02/10/24 08:10 Ur Leukocyte Esterase Negative (Negative) 02/10/24 08:10 Urine RBC 0-2 /hpf (0-2) 02/10/24 08:10 Urine WBC 0-5 /hpf (0-5) 02/10/24 08:10 Ur Squamous Epith Cells 0-5 /hpf (0-5) 02/10/24 08:10 Amorphous Sediment Not Reportable 02/10/24 08:10 Urine Bacteria None seen /hpf (NONE) 02/10/24 08:10 Hyaline Casts 0-4 /lpf H 02/10/24 08:10 All radiology interpretation(s) finalized by discharge Discharge Plan Discharge Patient Disposition: Home Clinical Impression: Medication side effects Condition: Stable Prescriptions: No Action fluticasone propionate [Allergy Relief (fluticasone)] 50 mcg/actuation spray,suspension 1 spray intranasal Q12H Qty: 16 1RF Rx Instructions: administer into each nostril citalopram [Celexa] 10 mg tablet 10 mg PO DAILY Qty: 30 2RF buspirone 10 mg tablet 10 mg PO BID PRN (Reason: anxiety) Qty: 30 0RF Discharge Orders: Discharge ED (Routine); Ordered 02/10/24 Ordered By: Haim Sweeney Referrals: Gareth Vazquez DO [Primary Care Provider] - Discharge Diet: Usual diet Discharge Activity: Resume usual activity Patient Instructions: Opioid Safety, Pain Management Activity Restrictions/Additional Instructions: Thank you for choosing [facility] for your healthcare needs today. It is very important that you follow up as instructed or that you return to the Emergency Department should you have concerns or if your condition changes or worsens in any way. You were seen emergency room with complaints of nausea and vomiting headache. Your exam was unremarkable your labs were negative. Recommend home not taking escitalopram or other buspirone. Follow-up with your primary care doctor. 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
[2024-02-10 08:33] LABS: Alanine Aminotransferase 10 U/L (0-33); Albumin Level 4.7 g/dL (3.5-5.2); Alkaline Phosphatase 55 U/L (35-105); Anion Gap 15.9 (5-19); Aspartate Amino Transferase 12 U/L (0-32); Blood Urea Nitrogen 11 mg/dL (6-20); Calcium 9.3 mg/dL (8.5-10.5); Carbon Dioxide 21 mmol/L (22-29); Chloride 104 mmol/L (98-107); Creatinine Clr Calc Pharmacy 122.3047; Globulin 2.8 g/dL (1.3-4.6); Glucose 112 mg/dL (65-115); HCG, Serum Qual Negative (Negative); Osmolality Calculated 284 mOsm/kg (285-295); Potassium 3.9 mmol/L (3.5-5.1); Sodium 137 mmol/L (136-145); Total Bilirubin 0.4 mg/dL (0.15-1.2); Total Protein 7.5 g/dL (6.6-8.7)
[2024-02-10 09:18] LABS: Charge for UA Resulting for Rev
[2024-02-10 09:56] LABS: Bilirubin Urine Negative (Negative); Blood Urine 2+ (Negative); Glucose Urine UA Negative (Normal); Ketones Urine Negative (Negative); Leukocyte Esterase Urine Negative (Negative); Nitrate Urine Negative (Negative); Protein Urine Negative (Negative); Specific Gravity, Urine 1.011 (1.005-1.030); Urine Appearance Clear (CLEAR); Urine Color Yellow (Yellow); Urobilinogen Urine 0.2 mg/dL (Negative)
[2024-02-10 10:00] LABS: Bacteria Urine None Seen /hpf; Hyaline Casts Urine 0-4 /lpf; RBC Urine 0-2 /hpf (0-2); Squamous Epithelial Cell Urine 0-5 /hpf (0-5); WBC Urine 0-5 /hpf (0-5)
[2024-02-10] MEDS: ketorolac 30 mg/mL INJ IVP (10:43)
[2024-02-10] MEDS: metoclopramide 5 mg/mL SDV 2 mL 10 MG IVP (10:45)
== END 2024-02-10 10:57 | disposition home or self-care (01) ==
PROVIDERS: Emergency Provider Family Medicine; PCP Family Medicine
DX: G44.40 Drug-induced headache, not elsewhere classified, not intractable (principal); T43.225A Adverse effect of selective serotonin reuptake inhibitors, initial encounter; T43.595A Adverse effect of other antipsychotics and neuroleptics, initial encounter; R11.2 Nausea with vomiting, unspecified
CPT/HCPCS: 80053; 81003; 81015; 84703; 85025; 96361; 96374; 96375; 99284; J1885; J2405; J2765; J7030

== ENCOUNTER → 2024-02-16 09:17 | Outpatient (BNVA) | payer OTHER, SELFPAY | PROVIDERS: PCP Family Medicine; Visit Provider Nurse Practitioner Family | DX: F41.9 Anxiety disorder, unspecified (principal) | CPT/HCPCS: 84443 ==